=== PATIENT | male | born 1975 | race Caucasian/White ===

== ENCOUNTER 2021-05-12 09:29 | Inpatient (IN) | payer OTHER ==
[~2021-05-12] VITALS: Ht 170.2 cm; Wt 75.0 kg
[2021-05-12 10:59] LABS: AMPHET/METH SCREEN,URINE POSITIVE (NEGATIVE); BARBITURATE SCREEN, URINE NEGATIVE (NEGATIVE); BENZODIAZEPINES SCREEN,URINE NEGATIVE (NEGATIVE); CANNABINOID SCREEN,URINE POSITIVE (NEGATIVE); COCAINE SCREEN,URINE NEGATIVE (NEGATIVE); METHADONE SCREEN, URINE NEGATIVE (NEGATIVE); OPIATE SCREEN,URINE POSITIVE (NEGATIVE); PHENCYCLIDINE SCREEN,URINE NEGATIVE (NEGATIVE)
[2021-05-12 11:15] LABS: BASOPHILS % (AUTO) 0.3 % (0.0-2.0); EOSINOPHILS % (AUTO) 0.2 % (1.0-6.0); HEMATOCRIT 45.6 % (41-53); LYMPHOCYTES % (AUTO) 10.1 % (22.0-44.0); MEAN CORPUSCULAR HEMOGLOBIN 29.1 pg (26.0-34.0); MEAN CORPUSCULAR HGB CONC 32.9 G/dL (31.0-37.0); MEAN CORPUSCULAR VOLUME 89 fL (80-100); MONOCYTES # (AUTO) 0.3 K/uL (0.1-1.0); NEUTROPHILS # (AUTO) 8.2 K/uL (1.8-7.7); PLATELET COUNT (AUTO) 354 K/uL (150-450); RED BLOOD CELL COUNT(AUTO) 5.15 MIL/uL (4.50-5.90); RED CELL DISTRIBUTION WIDTH 14.1 % (11.5-14.5)
[2021-05-12 11:16] LABS: NEUTROPHILS % (AUTO) 86.4 % (40.0-70.0)
[2021-05-12 11:23] LABS: ANION GAP 7 mmol/L (8-16); CARBON DIOXIDE 31 mmol/L (22-29); CHLORIDE 103 mmol/L (98-107); CREATININE 0.67 mg/dL (0.60-1.30); GLOMERULAR FILTR. RATE CALC > 60 mL/min (>60); GLUCOSE,RANDOM 113 mg/dL (70-110); POTASSIUM 4.3 mmol/L (3.5-5.1); SODIUM SERUM 141 mmol/L (136-145); UREA NITROGEN, BLOOD 9 mg/dL (7-18)
[2021-05-12 11:37] LABS: ALANINE AMINOTRANSFERASE 36 U/L (12-78); ALKALINE PHOSPHATASE 78 U/L (46-116); ASPARTATE AMINOTRANSFERASE 20 U/L (15-37); BILIRUBIN,TOTAL 0.5 mg/dL (0.1-1.0); TOTAL PROTEIN, SERUM 7.7 g/dL (6.4-8.2)
[2021-05-12 11:54] LABS: COVID AG,FIA SOURCE NASOPHARYNGEAL
[2021-05-12] MEDS ORDERED: 0.9% SODIUM CHLORIDE 10 ML SYRINGE IVP PRN (13:00)
[2021-05-12 14:50] VITALS: BP 133/85
[2021-05-12] MEDS ORDERED: ACETAMINOPHEN 325 MG TABLET PO PRN (16:45)
[2021-05-12] MEDS ORDERED: LORazepam 1 MG TABLET PO PRN (16:45)
[2021-05-12] MEDS ORDERED: DICYCLOMINE HCL 10 MG CAPSULE PO PRN (16:45)
[2021-05-12] MEDS ORDERED: HydrOXYzine PAMOATE 50 MG CAPSULE PO PRN (16:45)
[2021-05-12] MEDS ORDERED: CloNIDine HCL 0.1 MG TABLET PO PRN (16:45)
[2021-05-12] MEDS ORDERED: IBUPROFEN 600 MG TABLET PO PRN (16:45)
[2021-05-12] MEDS ORDERED: PROMETHAZINE HCL 25 MG TABLET PO PRN (16:45)
[2021-05-12] MEDS ORDERED: TraZODone HCL 50 MG TABLET PO PRN (16:45)
[2021-05-12] MEDS ORDERED: LOPERAMIDE HCL 2 MG/15 ML SUSPENSION UDCUP PO PRN (16:45)
[2021-05-12] MEDS ORDERED: MAG HYDROX/AL HYDROX/SIMETH ES 30 ML SUSPENSION UDCUP PO PRN (16:45)
[2021-05-12] MEDS ORDERED: BACLOFEN 10 MG TABLET PO PRN (16:45)
[2021-05-12] MEDS: SODIUM CHLORIDE 0.45% 1,000 ML IV SCH (17:30)
[2021-05-12 20:16] VITALS: BP 138/92
[2021-05-12 23:26] VITALS: BP 130/85
[2021-05-13 05:24] VITALS: BP 139/92
[2021-05-13] MEDS: SODIUM CHLORIDE 0.45% 1,000 ML IV SCH ×2 (05:25→17:25)
[2021-05-13 08:19] VITALS: BP 118/79
[2021-05-13 11:04] VITALS: BP 113/79
[2021-05-13 15:48] VITALS: BP 119/76
[2021-05-13] MEDS ORDERED: LOPERAMIDE HCL 2 MG CAPSULE PO PRN (17:45)
[2021-05-13 20:12] VITALS: BP 120/85
[2021-05-14 05:00] VITALS: BP 139/88
[2021-05-14 08:28] VITALS: BP 115/78
[2021-05-14] MEDS: SODIUM CHLORIDE 0.45% 1,000 ML IV SCH (08:28)
[2021-05-14 12:45] VITALS: BP 121/77
[2021-05-14 16:37] VITALS: BP 117/77
[2021-05-14 20:28] VITALS: BP 119/89
[2021-05-15 05:00] VITALS: BP 126/90
== END 2021-05-15 12:55 | DRG 897 ==
LOC: EMS 09:37 → 6S 13:42
PROVIDERS: ADMIT Hospitalist; ATTEND Hospitalist
DX: F11.13 Opioid abuse with withdrawal (principal); Z20.822 Contact with and (suspected) exposure to COVID-19
CPT/HCPCS: 80053; 85025; 99285; G0480